=== PATIENT | female | born 1980 | race Hispanic/Latino ===

== ENCOUNTER 2018-05-17 13:46 | Emergency (ER) | payer OTHER ==
--- NOTE | 2018-05-17 14:22 | Emergency Department Report ---
Blank Doc - Documentation Documentation: This is a 37-year-old female that presents with right sided facial swelling and dental pain. This initial assessment/diagnostic orders/clinical plan/treatment(s) is/are subject to change based on patient's health status, clinical progression and re- assessment by fellow clinical providers in the ED. Further treatment and workup at subsequent clinical providers discretion. Patient/guardians urged not to elope from the ED as their condition may be serious if not clinically assessed and managed. Initial orders include: 1- Patient sent to [facility] for further evaluation and treatment
[2018-05-17 14:23] VITALS: BP 138/87
[2018-05-17] MEDS ORDERED: NORCO 5/325 PO ONE (16:14)
[2018-05-17] MEDS ORDERED: CLEOCIN PO ONE (16:14)
[2018-05-17] MEDS ORDERED: IBUPROFEN PO ONE (16:14)
--- NOTE | 2018-05-17 16:34 | Emergency Department Report ---
ED ENT HPI - General Chief complaint: Dental/Oral Stated complaint: ABSCESS/JAW SWOLLEN Time Seen by Provider: 05/17/18 14:21 Source: patient Mode of arrival: Ambulatory Limitations: No Limitations - History of Present Illness Initial comments: Patient is a 37-year-old female who is presenting with swelling to the right jaw. Patient has a history of poor dentition but has had some swelling and increased pain for the past several days. Patient rates pain a 10 out of 10 in severity. Heart Time Chewing and Moving Her Jaw. She Denies Any Difficulty Swallowing or Shortness of Breath. Quality: aching Consistency: constant Associated Symptoms: gum swelling, toothache. denies: fever, cough, pain with swallowing, sore throat, tinnitus, hearing loss, discharge from ear, rhinorrhea - Related Data Previous Rx's Medication Instructions Recorded Last Taken Type Clindamycin [Clindamycin CAP] 300 mg PO Q8H #21 cap 05/17/18 Unknown Rx HYDROcodone/ACETAMINOPHEN 1 each PO Q6HR PRN #12 tablet 05/17/18 Unknown Rx [Hydrocodone-Acetamin 5-325 mg] Ibuprofen [Ibu] 800 mg PO Q8H PRN #20 tablet 05/17/18 Unknown Rx Allergies Allergy/AdvReac Type Severity Reaction Status Date / Time No Known Allergies Allergy Verified 05/17/18 13:48 ED Dental HPI - General Chief complaint: Dental/Oral Stated complaint: ABSCESS/JAW SWOLLEN Time Seen by Provider: 05/17/18 14:21 Source: patient Mode of arrival: Ambulatory Limitations: No Limitations - Related Data Previous Rx's Medication Instructions Recorded Last Taken Type Clindamycin [Clindamycin CAP] 300 mg PO Q8H #21 cap 05/17/18 Unknown Rx HYDROcodone/ACETAMINOPHEN 1 each PO Q6HR PRN #12 tablet 05/17/18 Unknown Rx [Hydrocodone-Acetamin 5-325 mg] Ibuprofen [Ibu] 800 mg PO Q8H PRN #20 tablet 05/17/18 Unknown Rx Allergies Allergy/AdvReac Type Severity Reaction Status Date / Time No Known Allergies Allergy Verified 05/17/18 13:48 ED Review of Systems ROS: Stated complaint: ABSCESS/JAW SWOLLEN Other details as noted in HPI Comment: All other systems reviewed and negative ED Past Medical Hx - Social History Smoking Status: Current Every Day Smoker Substance Use Type: None - Medications Home Medications: Home Medications Medication Instructions Recorded Confirmed Last Taken Type Clindamycin [Clindamycin CAP] 300 mg PO Q8H #21 cap 05/17/18 Unknown Rx HYDROcodone/ACETAMINOPHEN 1 each PO Q6HR PRN #12 tablet 05/17/18 Unknown Rx [Hydrocodone-Acetamin 5-325 mg] Ibuprofen [Ibu] 800 mg PO Q8H PRN #20 tablet 05/17/18 Unknown Rx ED Physical Exam - General Limitations: No Limitations General appearance: alert, in no apparent distress - Head Head exam: Present: atraumatic, normocephalic - Eye Eye exam: Present: normal appearance - Expanded ENT Exam Expanded Ear exam: Present: normal external inspection Mouth exam: Present: tongue normal. Absent: tongue elevation Teeth exam: Present: dental caries (diffuse), other (patient has exquisite tenderness along the area where tooth 28-30 would have been. These were then worn down and necrotic along the gumline. Patient has some swelling to the gums and swelling to the face the angle of the right side of her jaw. It is consistent with a facial cellulitis.) ED Course Vital Signs 05/17/18 14:21 Temperature 98.3 F Pulse Rate 82 Respiratory 16 Rate Blood Pressure 138/87 O2 Sat by Pulse 100 Oximetry ED Medical Decision Making - Medical Decision Making Issue with dental abscess with significant facial cellulitis. Patient started on clindamycin and patient was given pain meds symptomatically for discharge home. Critical care attestation.: If time is entered above; I have spent that time in minutes in the direct care of this critically ill patient, excluding procedure time. ED Disposition Clinical Impression: Dental abscess, Facial cellulitis Disposition: TO HOME OR SELFCARE Is pt being admited?: No Does the pt Need Aspirin: No Condition: Stable Instructions: Dental Abscess (ED) Referrals: [facility] [Other] - 3-5 Days Time of Disposition: 16:36
== END 2018-05-17 16:46 | disposition home or self-care (01) ==
LOC: ED 13:46
DX: K04.7 Periapical abscess without sinus (principal); L03.211 Cellulitis of face; F17.200 Nicotine dependence, unspecified, uncomplicated
CPT/HCPCS: 99282